=== PATIENT | male | born 1975 | race Caucasian/White ===

== ENCOUNTER 2016-10-02 13:44 | Emergency (ER) | payer OTHER | END 2016-10-02 14:23 | disposition home or self-care (01) | LOC: ER 13:44 | DX: J32.9 Chronic sinusitis, unspecified (principal); J06.9 Acute upper respiratory infection, unspecified; R05 Cough; F17.210 Nicotine dependence, cigarettes, uncomplicated; Z88.8 Allergy status to other drugs, medicaments and biological substances | CPT/HCPCS: 99282 ==